=== PATIENT | male | born 1990 | race African-American/Black ===

== ENCOUNTER 2021-10-23 18:38 | Emergency (ER) | payer SELFPAY ==
[~2021-10-23] VITALS: Ht 172.7 cm; Wt 89.0 kg
[2021-10-23] MEDS: LIDOCAINE HCL 1% 20ML VIAL (Pyxis) INJ INFIL ONE (21:49)
[2021-10-23] MEDS: HYDROCODONE/ACETAMINOPHEN 10/325MG TABLET PO ONE (21:50)
[2021-10-23] MEDS ORDERED: ACET-2708 MT (23:01)
[2021-10-23] MEDS ORDERED: NAP5EC MT (23:01)
[2021-10-23 23:34] VITALS: BP 146/82
== END 2021-10-23 23:44 | disposition home or self-care (01) ==
LOC: ER 18:38
DX: S63.124A Dislocation of interphalangeal joint of right thumb, initial encounter (principal); X58.XXXA Exposure to other specified factors, initial encounter; Y93.89 Activity, other specified; Y92.89 Other specified places as the place of occurrence of the external cause; Y99.8 Other external cause status; I10 Essential (primary) hypertension
CPT/HCPCS: 26770; 73140; 99284; J3490

== ENCOUNTER 2024-02-10 14:01 | Emergency (ER) | payer MEDICAID, OTHER ==
[~2024-02-10] VITALS: Ht 182.9 cm; Wt 86.0 kg
[~2024-02-10 14:01] MED LIST: ACET-2708 MT; NAPR-1495 MT
[2024-02-10 14:13] VITALS: O2SAT 100
[2024-02-10 15:51] LABS: HEMATOCRIT 45.5 % (42.0-52.0); HEMOGLOBIN 15.9 g/dL (14.0-18.0); MEAN CORPUSCULAR HEMOGLOBIN 29.1 pg (28.0-32.0); MEAN CORPUSCULAR VOLUME 83.2 fL (80.0-94.0); PLATELET 185 x1000/uL (130-400); RED BLOOD CELL COUNT 5.47 mill/uL (4.7-6.1); RED CELL DISTRIBUTION WIDTH 13.2 % (11.6-14.6); WHITE BLOOD COUNT 9.7 x1000/uL (4.5-11.0)
[2024-02-10 15:58] LABS: CHLORIDE 99 mEq/L (98-107); POTASSIUM 3.1 mEq/L (3.5-5.1); SODIUM 134 mEq/L (136-145)
[2024-02-10 15:59] LABS: CALCIUM 9.7 mg/dL (8.7-10.4); CARBON DIOXIDE 23 mEq/L (21-32)
[2024-02-10 16:04] LABS: CREATININE 1.4 mg/dL (0.6-1.3); GLUCOSE 195 mg/dL (70-105); UREA NITROGEN BLOOD 13 mg/dL (9-23)
[2024-02-10] MEDS: SODIUM CHLORIDE 0.9% 1,000 ML IV ONE (17:15)
[2024-02-10] MEDS: ONDANSETRON 4MG ODT PO STA (17:15)
[2024-02-10 17:45] LABS: ALANINE AMINOTRANSFERASE 29 IU/L (10-49); ASPARTATE AMINOTRANSFERASE 38 IU/L (<34)
[2024-02-10 17:46] LABS: BILIRUBIN DIRECT 0.6 mg/dL (<=3.0); BILIRUBIN TOTAL 1.7 mg/dL (0.1-1.0); PROTEIN TOTAL 7.9 g/dL (6.0-8.3)
[2024-02-10] MEDS: KETOROLAC 30MG/ML VIAL IM ONE (18:30)
[2024-02-10] MEDS ORDERED: CAPSAICIN 0.075% CREAM 57GM TOP PRN (18:45)
[2024-02-10] MEDS: POTASSIUM CHLORIDE 20MEQ/PACKET PO ONE (18:50)
[2024-02-10] MEDS: HALOPERIDOL LACTATE 5MG/ML VIAL IM ONE (18:50)
[2024-02-10] MEDS: CAPSAICIN 0.025% CREAM 60GM TOP PRN (20:48)
[2024-02-10 21:52] LABS: CLARITY URINE CLEAR (CLEAR); COLOR URINE DARK YELLOW (YELLOW); GLUCOSE URINE TRACE (NEGATIVE); KETONES URINE 1+ (NEGATIVE); LEUKOCYTE ESTERASE URINE NEGATIVE (NEGATIVE); NITRITE URINE NEGATIVE (NEGATIVE); OCCULT BLOOD URINE NEGATIVE (NEGATIVE); PROTEIN URINE 2+ (NEGATIVE); SPECIFIC GRAVITY URINE 1.036 (1.005-1.030)
[2024-02-10 22:29] LABS: BACTERIA URINE 2+; RBC URINE NONE SEEN /hpf (0-2); SQUAMOUS EPITHELIAL CELL URINE RARE /lpf (RARE/1+); WBC URINE 0-2 /hpf (0-2)
[2024-02-10 23:52] VITALS: BP 117/66; PULSE 78; RESP 18; TEMP 36.78072; O2SAT 100
== END 2024-02-10 23:53 ==
LOC: ER 14:01
DX: R11.2 Nausea with vomiting, unspecified (principal); I10 Essential (primary) hypertension
CPT/HCPCS: 80076; 80048; 81003; 83690; 85027; 36415; 74176; 96360; 96361; 96372; 99291; Q0162; J1630; J1885; J7030; Z7610